=== PATIENT | male | born 1950 | race Caucasian/White ===

== ENCOUNTER → 2019-02-04 12:41 | Outpatient (BNVA) | payer MEDICARE, BC, SELFPAY | PROVIDERS: PCP Family Medicine; Referring Provider Family Medicine; Visit Provider Nurse Practitioner Gerontology | DX: N40.1 Benign prostatic hyperplasia with lower urinary tract symptoms (principal); N13.8 Other obstructive and reflux uropathy; R31.9 Hematuria, unspecified; Z87.440 Personal history of urinary (tract) infections | CPT/HCPCS: 51798; 81003; 99204 ==

== ENCOUNTER 2019-02-27 14:08 | Outpatient (CLI) | payer MEDICARE, BC, SELFPAY ==
[2019-02-28 11:15] LABS: PSA, Screening 1.6 ng/ml (0-4.5)
== END 2019-02-27 14:28 ==
PROVIDERS: Nurse Practitioner Gerontology; PCP Family Medicine; Visit Provider Family Medicine
DX: N40.1 Benign prostatic hyperplasia with lower urinary tract symptoms (principal); Z12.5 Encounter for screening for malignant neoplasm of prostate
CPT/HCPCS: 36415; 84153

== ENCOUNTER 2019-12-17 15:02 | Outpatient (CLI) | payer MEDICARE, BC, SELFPAY | END 2019-12-17 15:22 | PROVIDERS: PCP Family Medicine; Visit Provider Family Medicine | DX: R00.2 Palpitations (principal) | CPT/HCPCS: 93225 ==

== ENCOUNTER 2019-12-23 | Outpatient (CLI) | payer MEDICARE, BC, SELFPAY | END 2019-12-23 00:20 | PROVIDERS: PCP Family Medicine; Visit Provider Internal Medicine Cardiovascular Disease | DX: I49.3 Ventricular premature depolarization (principal) | CPT/HCPCS: 93227 ==

== ENCOUNTER 2019-12-23 10:07 | Outpatient (CLI) | payer MEDICARE, BC, SELFPAY ==
--- NOTE | 2019-12-23 12:18 | W.HOLTRPT ---
Date of service: 12/23/19 Time of Service: 12:18 Holter Monitor Report Holter Monitor Note: This is a 48-hour Holter monitor The rhythm throughout was sinus. Average heart rate was 77, minimum 63 and maximum 118 bpm There were very rare atrial premature beats. There was one 4 beat run of premature atrial contractions There were moderately frequent ventricular ectopic beats, 2.2% of total. There were rare couplets. There was no ventricular tachycardia There was no atrial fibrillation There were no pauses greater than 2 seconds. There was no bradycardia
== END 2019-12-23 10:27 ==
PROVIDERS: PCP Family Medicine; Visit Provider Family Medicine
DX: R00.2 Palpitations (principal); I49.3 Ventricular premature depolarization
CPT/HCPCS: 93226

== ENCOUNTER 2020-01-29 10:06 | Outpatient (CLI) | payer MEDICARE, BC, SELFPAY ==
[2020-01-29 11:43] LABS: Calculated LDL 174 mg/dL (<100); Cholesterol 259 mg/dL (<200); HDL Cholesterol 71 mg/dL (40-60); TSH (W/Ref FT4) 2.15 uIU/mL (0.36-3.74); Triglyceride 74 mg/dL (<150)
== END 2020-01-29 10:26 ==
PROVIDERS: PCP Family Medicine; Visit Provider Family Medicine
DX: E78.5 Hyperlipidemia, unspecified (principal)
CPT/HCPCS: 36415; 80061; 84443

== ENCOUNTER → 2020-10-06 14:12 | Outpatient (BNVA) | payer MEDICARE, BC, SELFPAY | PROVIDERS: PCP Family Medicine; Referring Provider Family Medicine; Visit Provider Nurse Practitioner Gerontology | DX: N40.1 Benign prostatic hyperplasia with lower urinary tract symptoms (principal); N13.8 Other obstructive and reflux uropathy | CPT/HCPCS: 81003; 99214 ==

== ENCOUNTER 2020-12-18 01:58 | Outpatient (CLI) | payer MEDICARE, BC, SELFPAY ==
[2020-12-18 19:39] LABS: Calculated LDL 81 mg/dL (<100); Cholesterol 173 mg/dL (<200); HDL Cholesterol 77 mg/dL (40-60); Triglyceride 75 mg/dL (<150)
[2020-12-21 11:27] LABS: PSA, Screening 1.3 ng/mL (0.0-6.5)
== END 2020-12-18 01:59 | disposition home or self-care (01) ==
LOC: LBO 01:58
PROVIDERS: PCP Family Medicine; Visit Provider Nurse Practitioner Gerontology
DX: E78.5 Hyperlipidemia, unspecified (principal); N13.8 Other obstructive and reflux uropathy; N40.1 Benign prostatic hyperplasia with lower urinary tract symptoms; Z12.5 Encounter for screening for malignant neoplasm of prostate
CPT/HCPCS: 80061; 84153

== ENCOUNTER → 2020-12-29 08:50 | Outpatient (BNVA) | payer MEDICARE, BC, SELFPAY | PROVIDERS: PCP Family Medicine; Referring Provider Family Medicine; Visit Provider Nurse Practitioner Gerontology | DX: N40.1 Benign prostatic hyperplasia with lower urinary tract symptoms (principal); N13.8 Other obstructive and reflux uropathy | CPT/HCPCS: 99214 ==

== ENCOUNTER → 2021-12-22 10:03 | Outpatient (BNVA) | payer MEDICARE, BC, SELFPAY | PROVIDERS: PCP Family Medicine; Referring Provider Family Medicine; Visit Provider Nurse Practitioner Gerontology | DX: N40.1 Benign prostatic hyperplasia with lower urinary tract symptoms (principal); N13.8 Other obstructive and reflux uropathy | CPT/HCPCS: 51798; 99214 ==